=== PATIENT | male | born 2000 | race Caucasian/White ===

== ENCOUNTER 2024-04-19 13:26 | Emergency (ER) | payer OTHER ==
[~2024-04-19] VITALS: Ht 175.3 cm; Wt 90.7 kg
[2024-04-19] MEDS ORDERED: LORazepam 2 MG/ML 1ML Injection ONE ×2 (13:50→13:55)
[2024-04-19] MEDS ORDERED: LORazepam 2 MG/ML 1ML Injection IV ONE ×2 (14:00→14:05)
[2024-04-19] MEDS ORDERED: Metoclopramide HCl 5MG / ML 2ML Vial IV ONE (14:20)
[2024-04-19] MEDS ORDERED: DiphenhydrAMINE HCl 50 MG/ML 1ML Vial IV ONE (14:20)
[2024-04-19] MEDS ORDERED: levETIRAcetam 4,500 MG in NS 55 ML IV ONE (14:20)
[2024-04-19 15:13] LABS: BASOPHILS ABSOLUTE AUTO 0.05 K/mm3 (0.00-0.23); BASOPHILS PERCENT AUTO 1 % (0-2); EOSINOPHILS ABSOLUTE AUTO 0.08 K/mm3 (0.00-0.68); EOSINOPHILS PERCENT AUTO 1 % (0-6); Hemoglobin 13.4 g/dL (13.5-17.5); IMMATURE GRAN ABSOLUTE AUTO 0.01 K/mm3 (0.00-0.10); IMMATURE GRAN PERCENT AUTO 0 % (0-1); LYMPHOCYTES PERCENT AUTO 30 % (21-46); MONOCYTES ABSOLUTE AUTO 0.41 K/mm3 (0.16-1.47); MONOCYTES PERCENT AUTO 7 % (4-13); Mean Corpuscular HGB 28.8 pg (26.0-34.0); Mean Corpuscular HGB Conc 33.5 g/dL (31.5-36.5); Mean Corpuscular Volume 86 fL (80-100); NEUTROPHILS ABSOLUTE AUTO 3.41 K/mm3 (1.96-9.15); NEUTROPHILS PERCENT AUTO 60 % (41-73); Platelet Count 265 K/mm3 (150-400); RDW Coefficient Variation 12.2 % (11.7-14.2); RDW Standard Deviation 38.5 fL (35.1-46.3); Red Blood Cell Count 4.65 M/mm3 (4.30-5.90); White Blood Cell Count 5.66 K/mm3 (4.00-11.30)
[2024-04-19 15:31] LABS: Albumin/Globulin Ratio 1.3 (0.8-1.8); Bilirubin, Total 0.5 mg/dL (0.1-1.0); Bun/Creatinine Ratio 15.7 (12.0-20.0); Calcium, Blood 8.8 mg/dL (8.5-10.1); Creatinine, Blood 1.02 mg/dL (0.60-1.20); Globulin, Blood 3.1 g/dL (2.2-4.0); Potassium, Blood 3.9 mmol/L (3.5-5.5); Total Protein, Blood 7.1 g/dL (6.4-8.2)
[2024-04-19 16:14] LABS: Source, Urine Clean Catch
[2024-04-19 16:19] LABS: Appearance, Urine Clear (Clear); Bilirubin, Urine Neg (Neg); Blood, Urine Neg (Neg); Color, Urine Yellow (P-Yellow); Glucose Qualitative, Urine Neg (Neg); Ketones, Urine Neg (Neg); Leukocyte Esterase, Urine Neg (Neg); Nitrite, Urine Neg (Neg); Protein, Urine 1+ (Neg); Urobilinogen, Urine NORM (Normal)
[2024-04-19 16:32] LABS: U Amphetamine Screen Not Detected; U Barbituate Screen Not Detected; U Benzodiazapine Screen DETECTED; U Buprenorphine Screen Not Detected; U Cannabinoids Screen Not Detected; U Cocaine Screen Not Detected; U Methadone Screen Not Detected; U Methamphetamine Screen Not Detected; U Opiates Screen Not Detected; U Oxycodone Screen Not Detected; U Phencyclidine Screen Not Detected
[2024-04-19] MEDS ORDERED: KEPPRA250 M1 PO (16:59)
== END 2024-04-19 17:39 | disposition home or self-care (01) ==
LOC: ER 13:26
PROVIDERS: Student in an Organized Health Care Education/Training Program
DX: R56.9 Unspecified convulsions (principal)
CPT/HCPCS: 70450; 80053; 80320; 82947; 85025; 93005; 93010; 96374; 96375; 99284-25; J1200; J1953; J2060; J2765

== ENCOUNTER 2024-05-01 17:28 | Emergency (ER) | payer OTHER ==
[~2024-05-01] VITALS: Ht 172.7 cm; Wt 95.2 kg
[~2024-05-01 17:28] MED LIST: KEPPRA250 M1 PO
[2024-05-01] MEDS ORDERED: BUSPIRONE HCL5 M6 PO (18:20)
[2024-05-01] MEDS ORDERED: CYMBALTA20 M2 PO (18:21)
[2024-05-01 18:23] LABS: BASOPHILS ABSOLUTE AUTO 0.05 K/mm3 (0.00-0.23); BASOPHILS PERCENT AUTO 1 % (0-2); EOSINOPHILS ABSOLUTE AUTO 0.15 K/mm3 (0.00-0.68); EOSINOPHILS PERCENT AUTO 2 % (0-6); Hematocrit 39.2 % (37.0-53.0); Hemoglobin 13.4 g/dL (13.5-17.5); IMMATURE GRAN ABSOLUTE AUTO 0.03 K/mm3 (0.00-0.10); IMMATURE GRAN PERCENT AUTO 0 % (0-1); LYMPHOCYTES ABSOLUTE AUTO 2.26 K/mm3 (0.84-5.20); LYMPHOCYTES PERCENT AUTO 30 % (21-46); MONOCYTES ABSOLUTE AUTO 0.46 K/mm3 (0.16-1.47); MONOCYTES PERCENT AUTO 6 % (4-13); Mean Corpuscular HGB 29.5 pg (26.0-34.0); Mean Corpuscular HGB Conc 34.2 g/dL (31.5-36.5); Mean Corpuscular Volume 86 fL (80-100); Mean Platelet Volume 8.9 fL (9.1-12.4); NEUTROPHILS ABSOLUTE AUTO 4.64 K/mm3 (1.96-9.15); NEUTROPHILS PERCENT AUTO 61 % (41-73); Platelet Count 289 K/mm3 (150-400); RDW Coefficient Variation 12.1 % (11.7-14.2); RDW Standard Deviation 38.3 fL (35.1-46.3); Red Blood Cell Count 4.54 M/mm3 (4.30-5.90); White Blood Cell Count 7.59 K/mm3 (4.00-11.30)
[2024-05-01 18:44] LABS: Albumin, Blood 3.9 g/dL (3.4-5.0); Albumin/Globulin Ratio 1.2 (0.8-1.8); Bilirubin, Total 0.3 mg/dL (0.1-1.0); Bun/Creatinine Ratio 21.6 (12.0-20.0); Creatinine, Blood 0.74 mg/dL (0.60-1.20); Globulin, Blood 3.3 g/dL (2.2-4.0); Potassium, Blood 3.8 mmol/L (3.5-5.5); Total Protein, Blood 7.2 g/dL (6.4-8.2)
[2024-05-01] MEDS ORDERED: Ondansetron HCl 2 MG / ML 2ML Vial IV ONE (19:20)
[2024-05-01] MEDS ORDERED: Ketorolac Tromethamine 15mg Vial IV ONE (19:20)
[2024-05-01] MEDS ORDERED: levETIRAcetam 3,000 MG in NS 100 ML IV ONE ×2 (19:45→20:05)
[2024-05-01] MEDS ORDERED: LEVE500 PO (20:34)
== END 2024-05-01 21:18 | disposition home or self-care (01) ==
LOC: ER 17:28
PROVIDERS: Student in an Organized Health Care Education/Training Program
DX: R56.9 Unspecified convulsions (principal); Z79.899 Other long term (current) drug therapy; Z86.69 Personal history of other diseases of the nervous system and sense organs
CPT/HCPCS: 80053; 83735; 85025; 93005; 93010; 96365; 96375; 99284-25; J1885; J1953; J2405

== ENCOUNTER 2024-05-03 13:36 | Emergency (ER) | payer OTHER ==
[~2024-05-03] VITALS: Ht 172.7 cm; Wt 95.2 kg
[~2024-05-03 13:36] MED LIST changes: +BUSPIRONE HCL5 M6 PO; +CYMBALTA20 M2 PO; +LEVE500 PO
[2024-05-03] MEDS ORDERED: Cetirizine HCl10 MG PO (15:23)
[2024-05-03] MEDS ORDERED: DIVA500ER PO (16:12)
== END 2024-05-03 16:23 | disposition home or self-care (01) ==
LOC: ER 13:36
DX: R45.851 Suicidal ideations (principal); R45.4 Irritability and anger; T42.6X5A Adverse effect of other antiepileptic and sedative-hypnotic drugs, initial encounter; J45.909 Unspecified asthma, uncomplicated; Z79.899 Other long term (current) drug therapy
CPT/HCPCS: 99284

== ENCOUNTER 2024-05-21 22:41 | Emergency (ER) | payer OTHER ==
[~2024-05-21] VITALS: Ht 172.7 cm; Wt 99.8 kg
[~2024-05-21 22:41] MED LIST changes: +Cetirizine HCl10 MG PO; +DIVA500ER PO
[2024-05-21] MEDS ORDERED: ALBU90OI INH (22:59)
[2024-05-21] MEDS ORDERED: NS 1,000 ML IV SCH (23:15)
[2024-05-21 23:30] LABS: BASOPHILS ABSOLUTE AUTO 0.07 K/mm3 (0.00-0.23); BASOPHILS PERCENT AUTO 1 % (0-2); EOSINOPHILS ABSOLUTE AUTO 0.22 K/mm3 (0.00-0.68); EOSINOPHILS PERCENT AUTO 3 % (0-6); Hematocrit 40.4 % (37.0-53.0); Hemoglobin 13.5 g/dL (13.5-17.5); IMMATURE GRAN ABSOLUTE AUTO 0.04 K/mm3 (0.00-0.10); IMMATURE GRAN PERCENT AUTO 1 % (0-1); LYMPHOCYTES ABSOLUTE AUTO 2.87 K/mm3 (0.84-5.20); LYMPHOCYTES PERCENT AUTO 33 % (21-46); MONOCYTES ABSOLUTE AUTO 0.75 K/mm3 (0.16-1.47); MONOCYTES PERCENT AUTO 9 % (4-13); Mean Corpuscular HGB 28.8 pg (26.0-34.0); Mean Corpuscular HGB Conc 33.4 g/dL (31.5-36.5); Mean Corpuscular Volume 86 fL (80-100); NEUTROPHILS ABSOLUTE AUTO 4.67 K/mm3 (1.96-9.15); NEUTROPHILS PERCENT AUTO 54 % (41-73); Platelet Count 264 K/mm3 (150-400); RDW Coefficient Variation 12.2 % (11.7-14.2); RDW Standard Deviation 38.5 fL (35.1-46.3); Red Blood Cell Count 4.68 M/mm3 (4.30-5.90); White Blood Cell Count 8.62 K/mm3 (4.00-11.30)
[2024-05-21 23:54] LABS: Albumin, Blood 3.9 g/dL (3.4-5.0); Albumin/Globulin Ratio 1.1 (0.8-1.8); Bilirubin, Total 0.2 mg/dL (0.1-1.0); Bun/Creatinine Ratio 24.4 (12.0-20.0); Creatinine, Blood 0.66 mg/dL (0.60-1.20); Globulin, Blood 3.5 g/dL (2.2-4.0); Potassium, Blood 3.8 mmol/L (3.5-5.5); Total Protein, Blood 7.4 g/dL (6.4-8.2)
[2024-05-22 00:35] LABS: U Amphetamine Screen Not Detected; U Barbituate Screen Not Detected; U Benzodiazapine Screen Not Detected; U Buprenorphine Screen Not Detected; U Cannabinoids Screen Not Detected; U Cocaine Screen Not Detected; U Methadone Screen Not Detected; U Methamphetamine Screen Not Detected; U Opiates Screen Not Detected; U Oxycodone Screen Not Detected; U Phencyclidine Screen Not Detected
[2024-05-22] MEDS ORDERED: NAYZILAM5 MG/0.11 (01:49)
== END 2024-05-22 02:00 | disposition home or self-care (01) ==
LOC: ER 22:41
PROVIDERS: Emergency Medicine
DX: R56.9 Unspecified convulsions (principal); E86.0 Dehydration; J45.909 Unspecified asthma, uncomplicated; Z88.8 Allergy status to other drugs, medicaments and biological substances; Z79.899 Other long term (current) drug therapy
CPT/HCPCS: 80053; 82550; 83605; 85025; 93005; 93010; 96360; 96361; 99284-25; J7030

== ENCOUNTER 2024-06-02 17:28 | Emergency (ER) | payer OTHER ==
[~2024-06-02] VITALS: Ht 170.2 cm; Wt 102.1 kg
[~2024-06-02 17:28] MED LIST changes: +ALBU90OI INH; +NAYZILAM5 MG/0.11
[2024-06-02] MEDS ORDERED: NS 1,000 ML IV SCH (17:40)
[2024-06-02 18:16] LABS: BASOPHILS ABSOLUTE AUTO 0.05 K/mm3 (0.00-0.23); BASOPHILS PERCENT AUTO 1 % (0-2); EOSINOPHILS PERCENT AUTO 3 % (0-6); Hematocrit 43.5 % (37.0-53.0); Hemoglobin 14.6 g/dL (13.5-17.5); IMMATURE GRAN ABSOLUTE AUTO 0.04 K/mm3 (0.00-0.10); IMMATURE GRAN PERCENT AUTO 1 % (0-1); LYMPHOCYTES ABSOLUTE AUTO 2.76 K/mm3 (0.84-5.20); LYMPHOCYTES PERCENT AUTO 40 % (21-46); MONOCYTES ABSOLUTE AUTO 0.64 K/mm3 (0.16-1.47); MONOCYTES PERCENT AUTO 9 % (4-13); Mean Corpuscular HGB 28.9 pg (26.0-34.0); Mean Corpuscular HGB Conc 33.6 g/dL (31.5-36.5); Mean Corpuscular Volume 86 fL (80-100); Mean Platelet Volume 8.8 fL (9.1-12.4); NEUTROPHILS ABSOLUTE AUTO 3.25 K/mm3 (1.96-9.15); NEUTROPHILS PERCENT AUTO 47 % (41-73); Platelet Count 313 K/mm3 (150-400); Red Blood Cell Count 5.06 M/mm3 (4.30-5.90); White Blood Cell Count 6.94 K/mm3 (4.00-11.30)
[2024-06-02 18:36] LABS: Bun/Creatinine Ratio 17.9 (12.0-20.0); Calcium, Blood 9.3 mg/dL (8.5-10.1); Creatinine, Blood 0.78 mg/dL (0.60-1.20); Magnesium, Blood 2.3 mg/dL (1.6-2.4); Potassium, Blood 4.3 mmol/L (3.5-5.5)
[2024-06-02 18:42] LABS: Valproic Acid 117.1 ug/mL (50.0-100.0)
== END 2024-06-02 19:41 | disposition home or self-care (01) ==
LOC: EDBD 17:28 → ER 17:28
PROVIDERS: Emergency Medicine
DX: G40.909 Epilepsy, unspecified, not intractable, without status epilepticus (principal); J45.909 Unspecified asthma, uncomplicated; Z88.8 Allergy status to other drugs, medicaments and biological substances; Z79.899 Other long term (current) drug therapy
CPT/HCPCS: 71045; 80048; 80164; 83735; 84484; 85025; 93005; 93010; 96360; 99284-25; J7030

== ENCOUNTER 2024-06-09 15:51 | Emergency (ER) | payer OTHER ==
[~2024-06-09] VITALS: Ht 172.7 cm; Wt 97.5 kg
[2024-06-09 16:09] LABS: BASOPHILS ABSOLUTE AUTO 0.05 K/mm3 (0.00-0.23); BASOPHILS PERCENT AUTO 1 % (0-2); EOSINOPHILS ABSOLUTE AUTO 0.13 K/mm3 (0.00-0.68); EOSINOPHILS PERCENT AUTO 2 % (0-6); Hematocrit 39.1 % (37.0-53.0); Hemoglobin 13.2 g/dL (13.5-17.5); IMMATURE GRAN ABSOLUTE AUTO 0.05 K/mm3 (0.00-0.10); IMMATURE GRAN PERCENT AUTO 1 % (0-1); LYMPHOCYTES ABSOLUTE AUTO 2.29 K/mm3 (0.84-5.20); LYMPHOCYTES PERCENT AUTO 35 % (21-46); MONOCYTES ABSOLUTE AUTO 0.69 K/mm3 (0.16-1.47); MONOCYTES PERCENT AUTO 11 % (4-13); Mean Corpuscular HGB 29.3 pg (26.0-34.0); Mean Corpuscular HGB Conc 33.8 g/dL (31.5-36.5); Mean Corpuscular Volume 87 fL (80-100); Mean Platelet Volume 9.1 fL (9.1-12.4); NEUTROPHILS PERCENT AUTO 51 % (41-73); Platelet Count 239 K/mm3 (150-400); RDW Coefficient Variation 12.3 % (11.7-14.2); RDW Standard Deviation 39.1 fL (35.1-46.3); Red Blood Cell Count 4.51 M/mm3 (4.30-5.90); White Blood Cell Count 6.51 K/mm3 (4.00-11.30)
[2024-06-09 16:29] LABS: Albumin, Blood 3.4 g/dL (3.4-5.0); Albumin/Globulin Ratio 0.9 (0.8-1.8); Bilirubin, Total 0.2 mg/dL (0.1-1.0); Calcium, Blood 8.6 mg/dL (8.5-10.1); Creatinine, Blood 0.67 mg/dL (0.60-1.20); Globulin, Blood 3.6 g/dL (2.2-4.0); Magnesium, Blood 2.1 mg/dL (1.6-2.4); Potassium, Blood 4.3 mmol/L (3.5-5.5)
[2024-06-09 17:02] LABS: Source, Urine Clean Catch
[2024-06-09 17:05] LABS: Bilirubin, Urine Neg (Neg); Blood, Urine Neg (Neg); Glucose Qualitative, Urine Neg (Neg); Ketones, Urine 1+ (Neg); Leukocyte Esterase, Urine Neg (Neg); Nitrite, Urine Neg (Neg); Protein, Urine Neg (Neg); Urobilinogen, Urine NORM (Normal)
[2024-06-09 17:06] LABS: Appearance, Urine Clear (Clear); Color, Urine Pale Yellow (P-Yellow)
[2024-06-09 17:16] LABS: U Amphetamine Screen Not Detected; U Barbituate Screen Not Detected; U Benzodiazapine Screen DETECTED; U Buprenorphine Screen Not Detected; U Cannabinoids Screen Not Detected; U Cocaine Screen Not Detected; U Methadone Screen Not Detected; U Methamphetamine Screen Not Detected; U Opiates Screen Not Detected; U Oxycodone Screen Not Detected; U Phencyclidine Screen Not Detected
[2024-06-09] MEDS ORDERED: LORazepam 2 MG/ML 1ML Injection ONE ×2 (17:31→17:34)
[2024-06-09] MEDS ORDERED: VALPROATE SODIUM IV ONE (18:25)
[2024-06-09] MEDS ORDERED: NS IV ONE (18:25)
[2024-06-09] MEDS ORDERED: LORazepam 2 MG/ML 1ML Injection IV ONE (19:40)
[2024-06-09] MEDS ORDERED: Lacosamide 400 MG IV SCH (19:55)
[2024-06-09] MEDS ORDERED: Lacosamide 200 MG/20 ML 20ML Vial IV ONE (20:00)
[2024-06-09] MEDS ORDERED: NS 50 ML IV SCH (20:15)
== END 2024-06-09 23:45 | disposition short-term general hospital (02) ==
LOC: ER 15:51
PROVIDERS: Student in an Organized Health Care Education/Training Program
DX: G40.901 Epilepsy, unspecified, not intractable, with status epilepticus (principal); J45.909 Unspecified asthma, uncomplicated; Z79.899 Other long term (current) drug therapy; Z88.1 Allergy status to other antibiotic agents
CPT/HCPCS: 70450; 80053; 80320; 81003; 83735; 84146; 85025; 93005; 93010; 96365; 96375; 96376; 99285-25; C9254; J2060

== ENCOUNTER 2024-06-16 23:57 | Emergency (ER) | payer OTHER ==
[~2024-06-16] VITALS: Ht 172.7 cm; Wt 99.8 kg
[2024-06-17 00:23] LABS: BASOPHILS ABSOLUTE AUTO 0.07 K/mm3 (0.00-0.23); BASOPHILS PERCENT AUTO 1 % (0-2); EOSINOPHILS ABSOLUTE AUTO 0.36 K/mm3 (0.00-0.68); EOSINOPHILS PERCENT AUTO 4 % (0-6); Hemoglobin 13.1 g/dL (13.5-17.5); IMMATURE GRAN ABSOLUTE AUTO 0.03 K/mm3 (0.00-0.10); IMMATURE GRAN PERCENT AUTO 0 % (0-1); LYMPHOCYTES ABSOLUTE AUTO 2.82 K/mm3 (0.84-5.20); LYMPHOCYTES PERCENT AUTO 31 % (21-46); MONOCYTES ABSOLUTE AUTO 1.23 K/mm3 (0.16-1.47); MONOCYTES PERCENT AUTO 14 % (4-13); Mean Corpuscular HGB 29.2 pg (26.0-34.0); Mean Corpuscular HGB Conc 33.6 g/dL (31.5-36.5); Mean Corpuscular Volume 87 fL (80-100); Mean Platelet Volume 9.1 fL (9.1-12.4); NEUTROPHILS PERCENT AUTO 50 % (41-73); Platelet Count 267 K/mm3 (150-400); RDW Coefficient Variation 12.5 % (11.7-14.2); RDW Standard Deviation 39.4 fL (35.1-46.3); Red Blood Cell Count 4.49 M/mm3 (4.30-5.90); White Blood Cell Count 9.11 K/mm3 (4.00-11.30)
[2024-06-17] MEDS ORDERED: Ziprasidone Mesylate 20 MG / Vial IM ONE (00:30)
[2024-06-17] MEDS ORDERED: OLANZapine ODT 5 MG Tab PO ONE (00:30)
[2024-06-17 00:43] LABS: Albumin, Blood 3.7 g/dL (3.4-5.0); Albumin/Globulin Ratio 1.1 (0.8-1.8); Bilirubin, Total 0.2 mg/dL (0.1-1.0); Bun/Creatinine Ratio 21.7 (12.0-20.0); Calcium, Blood 9.1 mg/dL (8.5-10.1); Creatinine, Blood 0.83 mg/dL (0.60-1.20); Globulin, Blood 3.5 g/dL (2.2-4.0); Total Protein, Blood 7.2 g/dL (6.4-8.2)
[2024-06-17 02:06] LABS: Source, Urine Voided
[2024-06-17 02:12] LABS: Bilirubin, Urine Neg (Neg); Blood, Urine Neg (Neg); Glucose Qualitative, Urine Neg (Neg); Ketones, Urine Neg (Neg); Leukocyte Esterase, Urine 1+ (Neg); Nitrite, Urine Neg (Neg); Protein, Urine Neg (Neg); Specific Gravity, Urine 1.015 (1.003-1.022); Urobilinogen, Urine NORM (Normal)
[2024-06-17 02:19] LABS: Appearance, Urine Clear (Clear); Color, Urine Yellow (P-Yellow)
[2024-06-17 02:20] LABS: Bacteria Not Seen /hpf; Red Blood Cells, Urine Not Seen /hpf (0-2); Squamous Epithelial Cells Rare /hpf (Few); White Blood Cells, Urine 0-2 /hpf (0-5)
[2024-06-17 02:29] LABS: U Amphetamine Screen Not Detected; U Barbituate Screen Not Detected; U Benzodiazapine Screen Not Detected; U Buprenorphine Screen Not Detected; U Cannabinoids Screen Not Detected; U Cocaine Screen Not Detected; U Methadone Screen Not Detected; U Methamphetamine Screen Not Detected; U Opiates Screen Not Detected; U Oxycodone Screen Not Detected; U Phencyclidine Screen Not Detected
== END 2024-06-17 02:56 | disposition home or self-care (01) ==
LOC: ER 23:57
PROVIDERS: Emergency Medicine
DX: F43.0 Acute stress reaction (principal); J45.909 Unspecified asthma, uncomplicated; Z79.899 Other long term (current) drug therapy; Z88.8 Allergy status to other drugs, medicaments and biological substances
CPT/HCPCS: 80053; 80320; 81001; 83605; 85025; 93005; 93010; 96372; 99284-25; J3486

== ENCOUNTER 2024-09-10 16:33 | Emergency (ER) | payer OTHER ==
[~2024-09-10] VITALS: Ht 167.6 cm; Wt 86.2 kg
[2024-09-10] MEDS ORDERED: LAMO100 PO (17:01)
[2024-09-10 17:50] LABS: BASOPHILS ABSOLUTE AUTO 0.07 K/mm3 (0.00-0.23); BASOPHILS PERCENT AUTO 1 % (0-2); EOSINOPHILS ABSOLUTE AUTO 0.21 K/mm3 (0.00-0.68); EOSINOPHILS PERCENT AUTO 3 % (0-6); Hematocrit 41.1 % (37.0-53.0); Hemoglobin 13.6 g/dL (13.5-17.5); IMMATURE GRAN ABSOLUTE AUTO 0.02 K/mm3 (0.00-0.10); IMMATURE GRAN PERCENT AUTO 0 % (0-1); LYMPHOCYTES ABSOLUTE AUTO 3.13 K/mm3 (0.84-5.20); LYMPHOCYTES PERCENT AUTO 43 % (21-46); MONOCYTES ABSOLUTE AUTO 0.56 K/mm3 (0.16-1.47); MONOCYTES PERCENT AUTO 8 % (4-13); Mean Corpuscular HGB 28.7 pg (26.0-34.0); Mean Corpuscular HGB Conc 33.1 g/dL (31.5-36.5); Mean Corpuscular Volume 87 fL (80-100); Mean Platelet Volume 9.5 fL (9.1-12.4); NEUTROPHILS ABSOLUTE AUTO 3.24 K/mm3 (1.96-9.15); NEUTROPHILS PERCENT AUTO 45 % (41-73); Platelet Count 335 K/mm3 (150-400); RDW Coefficient Variation 12.4 % (11.7-14.2); RDW Standard Deviation 39.1 fL (35.1-46.3); Red Blood Cell Count 4.74 M/mm3 (4.30-5.90); White Blood Cell Count 7.23 K/mm3 (4.00-11.30)
[2024-09-10 17:51] LABS: Albumin, Blood 4.1 g/dL (3.4-5.0); Albumin/Globulin Ratio 1.3 (0.8-1.8); Bilirubin, Total 0.3 mg/dL (0.1-1.0); Bun/Creatinine Ratio 16.6 (12.0-20.0); Calcium, Blood 8.9 mg/dL (8.5-10.1); Creatinine, Blood 0.78 mg/dL (0.60-1.20); Globulin, Blood 3.2 g/dL (2.2-4.0); Potassium, Blood 4.1 mmol/L (3.5-5.5); Total Protein, Blood 7.3 g/dL (6.4-8.2)
[2024-09-10] MEDS ORDERED: NS 1,000 ML IV SCH (18:05)
[2024-09-10] MEDS ORDERED: HyDROXyzine HCl 25 MG Tab PO ONE (19:10)
[2024-09-10] MEDS ORDERED: Atarax10 MG PO (19:17)
== END 2024-09-10 19:34 | disposition home or self-care (01) ==
LOC: ER 16:33
PROVIDERS: Emergency Medicine
DX: F44.5 Conversion disorder with seizures or convulsions (principal); E86.0 Dehydration; R74.01 Elevation of levels of liver transaminase levels; Z88.8 Allergy status to other drugs, medicaments and biological substances; Z79.899 Other long term (current) drug therapy; Z59.89 Other problems related to housing and economic circumstances
CPT/HCPCS: 80053; 82550; 82947; 83605; 85025; 93005; 93010; 99284-25; A9270; J7030

== ENCOUNTER 2024-09-14 12:06 | Observation (INO) | payer OTHER ==
[~2024-09-14] VITALS: Ht 172.7 cm; Wt 88.5 kg
[~2024-09-14 12:06] MED LIST changes: +Atarax10 MG PO; +LAMO100 PO
[2024-09-14 12:46] LABS: BASOPHILS ABSOLUTE AUTO 0.06 K/mm3 (0.00-0.23); BASOPHILS PERCENT AUTO 1 % (0-2); EOSINOPHILS ABSOLUTE AUTO 0.18 K/mm3 (0.00-0.68); EOSINOPHILS PERCENT AUTO 3 % (0-6); Hemoglobin 13.8 g/dL (13.5-17.5); IMMATURE GRAN ABSOLUTE AUTO 0.03 K/mm3 (0.00-0.10); IMMATURE GRAN PERCENT AUTO 0 % (0-1); LYMPHOCYTES ABSOLUTE AUTO 2.65 K/mm3 (0.84-5.20); LYMPHOCYTES PERCENT AUTO 37 % (21-46); MONOCYTES ABSOLUTE AUTO 0.56 K/mm3 (0.16-1.47); MONOCYTES PERCENT AUTO 8 % (4-13); Mean Corpuscular HGB 28.8 pg (26.0-34.0); Mean Corpuscular HGB Conc 32.9 g/dL (31.5-36.5); Mean Corpuscular Volume 88 fL (80-100); NEUTROPHILS ABSOLUTE AUTO 3.67 K/mm3 (1.96-9.15); NEUTROPHILS PERCENT AUTO 51 % (41-73); Platelet Count 280 K/mm3 (150-400); RDW Coefficient Variation 12.5 % (11.7-14.2); RDW Standard Deviation 40.6 fL (35.1-46.3); Red Blood Cell Count 4.79 M/mm3 (4.30-5.90); White Blood Cell Count 7.15 K/mm3 (4.00-11.30)
[2024-09-14 12:47] LABS: Source, Urine Clean Catch
[2024-09-14 12:58] LABS: Appearance, Urine Clear (Clear); Bilirubin, Urine Neg (Neg); Blood, Urine Neg (Neg); Color, Urine Yellow (P-Yellow); Glucose Qualitative, Urine Neg (Neg); Ketones, Urine Neg (Neg); Leukocyte Esterase, Urine Neg (Neg); Nitrite, Urine Neg (Neg); Protein, Urine Neg (Neg); Urobilinogen, Urine NORM (Normal)
[2024-09-14 13:08] LABS: U Amphetamine Screen Not Detected; U Barbituate Screen Not Detected; U Benzodiazapine Screen Not Detected; U Buprenorphine Screen Not Detected; U Cannabinoids Screen DETECTED; U Cocaine Screen Not Detected; U Methadone Screen Not Detected; U Methamphetamine Screen Not Detected; U Opiates Screen Not Detected; U Oxycodone Screen Not Detected; U Phencyclidine Screen Not Detected
[2024-09-14 13:11] LABS: Ethanol (Alcohol), Blood, Med <3 mg/dL; Salicylate <1.7 mg/dL (2.8-20.0)
[2024-09-14 13:31] LABS: Alanine Aminotransfer (ALT/SGP 141 U/L (12-78); Albumin, Blood 4.2 g/dL (3.4-5.0); Albumin/Globulin Ratio 1.2 (0.8-1.8); Alk Phos 58 U/L (50-136); Anion Gap 8 mmol/L (3-11); Aspartate Aminotrans (AST/SGOT 56 U/L (12-37); Bilirubin, Total 0.4 mg/dL (0.1-1.0); Blood Urea Nitrogen 14 mg/dL (8-24); Bun/Creatinine Ratio 20.8 (12.0-20.0); CO2, Blood 26 mmol/L (21-32); Calcium, Blood 9.2 mg/dL (8.5-10.1); Chloride, Blood 107 mmol/L (98-108); Creatinine, Blood 0.67 mg/dL (0.60-1.20); Globulin, Blood 3.4 g/dL (2.2-4.0); Glomerular Filtration Rate 132 (60-); Glucose, Blood 85 mg/dL (70-99); Potassium, Blood 3.5 mmol/L (3.5-5.5); Sodium, Blood 137 mmol/L (136-145); Total Protein, Blood 7.6 g/dL (6.4-8.2)
[2024-09-14 13:32] LABS: Acetaminophen, Random <2.0 ug/mL (10.0-30.0)
== END 2024-09-18 22:00 | disposition home or self-care (01) ==
LOC: ER 12:06 → EOR 12:07
PROVIDERS: Student in an Organized Health Care Education/Training Program; ADMIT Psychiatry & Neurology Psychiatry
DX: F32.9 Major depressive disorder, single episode, unspecified (principal); R45.851 Suicidal ideations; R56.9 Unspecified convulsions; Z88.8 Allergy status to other drugs, medicaments and biological substances
CPT/HCPCS: 80053; 80320; 81003; 85025; 99285-25; G0378; G0480

== ENCOUNTER 2024-09-14 13:59 | Inpatient (IN) | payer OTHER ==
[~2024-09-14] VITALS: Ht 172.7 cm; Wt 112.7 kg
[2024-09-14] MEDS ORDERED: OLANZapine ODT 10 MG Tab MM PRN (14:40)
[2024-09-14] MEDS ORDERED: Ondansetron 4 MG SoluTab MM PRN (14:40)
[2024-09-14] MEDS ORDERED: Melatonin 3 MG Tab PO PRN (14:40)
[2024-09-14] MEDS ORDERED: TraZODone HCl 50 MG Tab PO PRN (14:45)
[2024-09-14] MEDS ORDERED: Polyethylene Glycol 3350 17 gm PO PRN (14:45)
[2024-09-14] MEDS ORDERED: Ibuprofen 600 MG Tab PO PRN (14:45)
[2024-09-14] MEDS ORDERED: LORazepam 2 MG Tab PO PRN (14:45)
[2024-09-14] MEDS ORDERED: LORazepam 2 MG/ML 1ML Injection IM PRN (14:45)
[2024-09-14] MEDS ORDERED: Haloperidol 5 MG Tab PO PRN (14:45)
[2024-09-14] MEDS ORDERED: HydrOXYzine Pamoate 50 MG Cap PO PRN (14:45)
[2024-09-14] MEDS ORDERED: Haloperidol Lactate Inj. 5 MG/ML Injection IM PRN (14:45)
[2024-09-14] MEDS ORDERED: Acetaminophen 325 MG TABLET PO PRN (14:50)
[2024-09-14] MEDS ORDERED: DiphenhydrAMINE HCl 50 MG Cap PO PRN (14:50)
[2024-09-14] MEDS ORDERED: DiphenhydrAMINE HCl 50 MG/ML 1ML Vial IM PRN (14:50)
[2024-09-14] MEDS ORDERED: Calcium Carbonate 500 MG Tab Chew PO PRN (14:50)
[2024-09-14] MEDS ORDERED: Aluminum Hydroxide 320MG/5ML 473 ML PO PRN (14:50)
[2024-09-14 15:08] VITALS: BP 134/91
[2024-09-14 15:21] VITALS: BP 134/91
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
[2024-09-14 20:00] VITALS: BP 139/88
[2024-09-14] MEDS ORDERED: LamoTRIgine 25 MG Tab PO SCH (21:00)
[2024-09-14] MEDS ORDERED: DULoxetine HCL 60 MG Capsule DR PO SCH (21:00)
[2024-09-14] MEDS ORDERED: DULoxetine HCL 20 MG Cap DR PO SCH (21:00)
[2024-09-14] MEDS ORDERED: BusPIRone HCl 10 MG Tab PO SCH (21:00)
--- NOTE | 2024-09-15 04:27 | NUR ---
SHIFT SUMMARY NO ACUTE EVENTS THIS EVENING. PT DENIES SI, HI, AVTH. PLEASANT AND COOPERATIVE W/ CARE. PT INTERACTING W/ PEERS AND STAFF, WENT TO SNACKTIME, AND WATCHED T.V. IN DAY ROOM BEFORE BED. AT START OF SHIFT PT BECAME TEARFUL AFTER TALKING W/ ON THE PHONE D/T MISSING .
[2024-09-15 08:01] VITALS: BP 141/99
[2024-09-15] MEDS ORDERED: Multivitamins 1 Tab PO SCH (09:00)
--- NOTE | 2024-09-15 16:24 | NUR ---
PATIENT WAS AWAKE AND ACTIVELY PARTICIPATING SINCE BREAKFAST. HE DENIES SUICIDAL IDEATION, AND DENIES INTENT AND PLANNING. PATIENT PARTICIAPTED IN GROUP, VISITED WITH PEER, MET WITH THE PROVIDER AND HAS BEEN IN A PLEASEANT MOOD. PATIENT HAD A VISIT WITH HIS THIS AFTERNOON, WHICH APPEARS TO LIFT HIS MOOD. PATIENT REPORTS SLEEP AND APPETITE ARE BOTH GOOD.
[2024-09-15 20:00] VITALS: BP 132/80
--- NOTE | 2024-09-16 04:44 | NUR ---
SHIFT SUMMARY PT DENIES SI, HI, AVTH. PT ELEVATED MOOD TODAY D/T VISITING PER PT. PT INTERACTING W/ PEERS AND STAFF, WENT TO SNACK TIME, AND WATCHED TV IN DAY ROOM. COOPERATIVE W/ CARE. SLEPT/RESTED QUIETLY T/O NIGHT.
[2024-09-16 08:08] VITALS: BP 126/74
[2024-09-16 08:38] LABS: CHOL/HDL RATIO 4.9; Cholesterol 202 mg/dL (50-200); HDL Cholesterol 41 mg/dL (>39); LDL/HDL RATIO 2.8; Low Density Lipoprotein Chol 115 mg/dL (0-110); Triglycerides 228 mg/dL (30-140); Very Low Density Lipoprot Chol 45 mg/dL (6-28)
--- NOTE | 2024-09-16 17:08 | NUR ---
SHIFT SUMMARY PT A/O X4; PLEASANT AND COOPERATIVE WITH CARE. HE DENIES SI, HI, OR ANY HALLUCINATIONS. PT SAYS THAT HE IS DOING VERY WELL AND HE IS EXCITED TO POTENTIALLY DISCHARGE SOON. PT IS SET UP WITH PROVIDER AT [facility]. PT ATTENDED ALL GROUPS AND MEALS THIS SHIFT. HE ALSO INTERACTS POSITIVELY WITH PEERS AND IS ACTIVE ON THE MILEU.
[2024-09-16 20:24] VITALS: BP 132/87
--- NOTE | 2024-09-17 04:32 | NUR ---
SHIFT SUMMARY: PT HAS SLEPT MOST OF SHIFT. INITIALLY WAS IN TV ROOM VISITING WITH STAFF AND OTHER PATIENTS. ATE SNACK, RECEIVED MEDICATIONS, AND THEN WENT TO BED. HAS REMAINED IN BED THROUGHOUT EVENING. DENIED SI/HI, HALLUCINATIONS. SPOKE OF HAVING INTRUSIVE THOUGHTS OF SUICIDE OVER LAST FEW YEARS BUT VERBALIZES THEY OCCUR ONLY 1-2 TIMES PER MONTH. HE STATED THEY "LITERALLY LAST ONLY A SECOND OR 2 AND THEN ARE GONE." HAS A THERAPIST HE SEES THROUGH [facility]. NO OTHER ISSUES IDENTIFIED DURING ASSESSMENT. CONTINUE 15 MIN CHECKS PER UNIT PROTOCOL FOR SAFETY.
[2024-09-17 08:13] VITALS: BP 133/87
--- NOTE | 2024-09-17 16:14 | NUR ---
SHIFT SUMMARY PT A/O X4; PLEASANT AND COOPERATIVE WITH CARE. HE DENIES SI, HI, HALLUCINATIONS. PT IS IN GOOD SPIRITS TODAY AND HE APPEARS OPTIMISTIC. HE PARTICIPATES IN ALL GROUPS/MEALS AND INTERACTS WELL WITH HIS PEERS. PT POTENTIALLY DC HOME TOMORROW WITH HIS . HE CONTINUES TO BE MONITORED VIA Q15 ROUNDING FOR WELLNESS AND SAFETY.
[2024-09-17 20:00] VITALS: BP 121/81
--- NOTE | 2024-09-18 04:11 | NUR ---
SHIFT SUMMARY PATIENT IN [place] WATCHING TV AND VISITING WITH PEERS AND STAFF. DENIES SI, HI, OR AVH. COOPERATIVE WITH PO MEDICATIONS. VERBALIZED THAT HE IS FEELING "HAPPY" AND EXCITED TO BE GOING HOME TOMORROW. PATIENT APPEARS TO BE SLEEPING WELL T/O NIGHT RESP EVEN AND UNLABORED. CONTINUE TO MONITOR Q15MIN.
[2024-09-18 08:21] VITALS: BP 133/83
--- NOTE | 2024-09-18 11:01 | NUR ---
"Spiritual Care Referral | Pt. request Pt. meets this slab grinder in the consult room. Pt. is pleasant, and verbalized his expectation to be discharged home today. Facilitated a life review and considered matters of dillon and belief, as well as home and family. Pt. welcomed prayer. Prayed with Pt. for him and his spouse. Pt. verbalized gratitude for the spiritual care visit."
--- NOTE | 2024-09-18 11:25 | NUR ---
IMPORTANT DISCHARGE INFORMATION SUSIE SISTER IN LAW WILL BE HERE TODAY FOR DISCHARGE BARREL HANDLER AT 1:30PM . PHARMACY:[facility] FOLLOW UP WITH DR. GUZMAN ON 10/01/24 AT 10AM MENTAL HEALTH SUPPORT WITH JOSE KATZ ON 09/20/24 RESOURCES FOR: HOW TO APPLY FOR SSD INSTRUCTIONS AND SUPPORT
--- NOTE | 2024-09-18 13:06 | NUR ---
RX CALLED INTO [facility] @[phone]
--- NOTE | 2024-09-18 13:30 | NUR ---
DISCHARGE NOTE PT GIVEN PRINTED D/C PACKET WITH F/U INFORMATION. PRESCRIPTIONS WERE CALLED TO [facility] IN [place], [place]. D/C FORM SIGNED BY PT AND HE STATES HE UNDERSTANDS HIS D/C FORMS. PT BELONGINGS RETURNED TO PT BY MHA AND NURSING STUDENTS. PT DRESSED SELF AND HAS MADE ARRANGEMENTS FOR HIS TO TRANSPORT HIM HOME.
== END 2024-09-18 13:37 | disposition home or self-care (01) | DRG 885 ==
LOC: BHU 13:59
PROVIDERS: ADMIT Psychiatry & Neurology Psychiatry
DX: F33.3 Major depressive disorder, recurrent, severe with psychotic symptoms (principal); R45.851 Suicidal ideations; F43.25 Adjustment disorder with mixed disturbance of emotions and conduct; Z88.8 Allergy status to other drugs, medicaments and biological substances; Z79.899 Other long term (current) drug therapy
CPT/HCPCS: 36415; 80061; 83036; A9270

== ENCOUNTER → 2025-04-22 | Outpatient (CLI) | payer OTHER ==
[2025-04-22 18:02] LABS: Red Blood Cells, Urine 0-2 /hpf (0-2); White Blood Cells, Urine 0-2 /hpf (0-5)
[2025-04-22 19:58] LABS: Hematocrit 42.1 % (37.0-53.0); Hemoglobin 13.8 g/dL (13.5-17.5); Mean Corpuscular HGB Conc 32.8 g/dL (31.5-36.5); Mean Corpuscular Volume 90 fL (80-100); NRBC ABSOLUTE 0.00 K/mm3 (0.00-0.02); NRBC Auto 0.0 /100 WBC (0.0-0.2); Platelet Count 356 K/mm3 (150-400); RDW Coefficient Variation 12.6 % (11.7-14.2); RDW Standard Deviation 41.3 fL (35.1-46.3)
[2025-04-22 20:24] LABS: BASOPHILS ABSOLUTE MAN 0.00 K/mm3 (0.00-0.23); BASOPHILS PERCENT MAN 0 % (0-2); EOSINOPHILS ABSOLUTE MAN 0.33 K/mm3 (0.00-0.68); EOSINOPHILS PERCENT MAN 3 % (0-6); LYMPHOCYTES ABSOLUTE MAN 3.59 K/mm3 (0.84-5.20); LYMPHOCYTES PERCENT MAN 32 % (21-46); MONOCYTES ABSOLUTE MAN 0.22 K/mm3 (0.16-1.47); MONOCYTES PERCENT MAN 2 % (4-13); NEUTROPHILS ABSOLUTE MAN 7.08 K/mm3 (1.96-9.15); SEG NEUTROPHILS PERCENT MAN 63 % (41-73)
[2025-04-23 11:35] LABS: Alanine Aminotransfer (ALT/SGP 34.0 U/L (12-78); Albumin, Blood 4.4 g/dL (3.4-5.0); Albumin/Globulin Ratio 1.3 (0.8-1.8); Anion Gap 9.0 mmol/L (3-11); Aspartate Aminotrans (AST/SGOT 16.0 U/L (12-37); Bilirubin, Total 0.4 mg/dL (0.1-1.0); Blood Urea Nitrogen 17.0 mg/dL (8-24); CO2, Blood 25.0 mmol/L (21-32); Calcium, Blood 9.1 mg/dL (8.5-10.1); Chloride, Blood 109.0 mmol/L (98-108); Creatinine, Blood 1.1 mg/dL (0.60-1.20); Globulin, Blood 3.4 g/dL (2.2-4.0); Glucose, Blood 90.0 mg/dL (70-99); Potassium, Blood 4.5 mmol/L (3.5-5.5); Sodium, Blood 138.0 mmol/L (136-145); Total Protein, Blood 7.8 g/dL (6.4-8.2)
== END | disposition home or self-care (01) ==
LOC: LAB SHORT 16:11 → LAB 16:11
PROVIDERS: Nurse Practitioner
DX: G40.409 Other generalized epilepsy and epileptic syndromes, not intractable, without status epilepticus (principal); S89.91XA Unspecified injury of right lower leg, initial encounter; M79.18 Myalgia, other site
CPT/HCPCS: 80053; 81015; 83874; 85007; 85027